=== PATIENT | female | born 1985 | race American Indian/Alaskan Native ===

== ENCOUNTER 2016-10-03 06:14 | Inpatient (IN) | payer MEDICAID ==
[2016-10-03] MEDS ORDERED: STADOL IV ONE (08:35)
[2016-10-03] MEDS ORDERED: LACTATED RINGERS 1,000 ML IV ONE (08:36)
[2016-10-03] MEDS ORDERED: ZOFRAN ONE (09:18)
[2016-10-03] MEDS ORDERED: ZOFRAN IV ONE (09:24)
[2016-10-03] MEDS ORDERED: SUBLIMAZE IV PRN (10:54)
[2016-10-03] MEDS ORDERED: BRETHINE SUB-Q PRN (10:54)
[2016-10-03] MEDS ORDERED: ePHEDrine SULFATE IV PRN ×2 (10:54→13:07)
[2016-10-03] MEDS ORDERED: STADOL IV PRN (10:54)
[2016-10-03] MEDS ORDERED: XYLOCAINE 2% INFILTRATI ONE (10:54)
[2016-10-03] MEDS ORDERED: MINERAL OIL PO PRN (10:54)
[2016-10-03] MEDS ORDERED: BRETHINE IVP PRN (10:54)
[2016-10-03] MEDS ORDERED: ZOFRAN IV PRN (10:54)
[2016-10-03] MEDS ORDERED: PITOCin/NS 30 UNIT/500ML 30 UNITS/500 ML BAG IV SCH (11:00)
[2016-10-03] MEDS ORDERED: PITOCin/NS 20 UNIT/1000ML DRIP 20 UNITS/1,000 ML BAG IV SCH (11:00)
[2016-10-03] MEDS ORDERED: LACTATED RINGERS 1,000 ML IV SCH (11:00)
[2016-10-03 11:24] LABS: Hematocrit 41.2 % (30.3-42.9); Hemoglobin 13.4 gm/dl (10.1-14.3); Mean Corpuscular HGB Conc 33 % (30-34); Mean Corpuscular Hemoglobin 31 pg (28-32); Mean Corpuscular Volume 94 fl (79-97); Platelet Count 200 K/mm3 (140-440); Red Blood Count 4.37 M/mm3 (3.65-5.03); Red Cell Distribution Width 14.8 % (13.2-15.2); White Blood Count 11.2 K/mm3 (4.5-11.0)
[2016-10-03] MEDS ORDERED: ePHEDrine SULFATE ONE (12:14)
[2016-10-03] MEDS: PITOCin/NS 30 UNIT/500ML 30 UNITS/500 ML BAG IV SCH ×4 (12:25→15:03)
[2016-10-03] MEDS ORDERED: NARCAN 2 MG/2 ML IV PRN (13:07)
--- NOTE | 2016-10-03 13:08 | Anesthesia Consultation ---
Anesthesia Consult and Med Hx Date of service: 10/03/16 - Airway Anesthetic Teeth Evaluation: Good ROM Head & Neck: Adequate Mental/Hyoid Distance: Adequate Mallampati Class: Class II Intubation Access Assessment: Probably Good - Pulmonary Exam CTA: Yes - Cardiac Exam Cardiac Exam: RRR - Pre-Operative Health Status ASA Pre-Surgery Classification: ASA2 Proposed Anesthetic Plan: Epidural, Spinal - Pulmonary Hx Asthma: No COPD: No Hx Pneumonia: No - Endocrine Hx End Stage Renal Disease: No - Hematic Hx Anemia: No - Other Systems Hx Obesity: Yes - Additional Comments Anesthesia Medical History Comments: +IUP
[2016-10-03] MEDS ORDERED: MARCAINE-EPI/PF 0.5%-1:200,000 INFILTRATI ONE (13:52)
[2016-10-03] MEDS ORDERED: fentaNYL-BUPIV 2 MCG/ML-0.125% 200 MCG/100 ML BAG EPIDURAL SCH (14:00)
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
--- NOTE | 2016-10-03 16:00 | Procedure Note ---
OB Delivery Note - Delivery Date of Delivery: 10/03/16 (1529) Surgeon: MELISSA CHANEY Estimated blood loss: 100cc - Vaginal Delivery presentation: vertex Delivery position: OA Intrapartum events: other(please specify) (terminal meconium) Delivery induction: none Delivery augmentation: pitocin Delivery monitor: external FHT, external uterine Route of delivery: Delivery placenta: spontaneous Delivery cord: 3 umbilical vessels Episiotomy: none Delivery laceration: none Anesthesia: epidural Delivery comments: Baby [place] was delivered on 10/03/2016 @1529 over intact perineum with terminal meconium and placed on maternal chest. Cord was clamped and cut by grandmother. Cord blood collected. Placenta delivered ann side presenting. Baby weighed 6lb 10 oz with apgars of 8/9. EBL 100. Mom and baby doing well. - A at 1 minute: 8 at 5 minutes: 9 Infant Gender: Female
[2016-10-03] MEDS ORDERED: MILK OF MAGNESIA PO PRN (16:02)
[2016-10-03] MEDS ORDERED: BENADRYL PO PRN (16:02)
[2016-10-03] MEDS ORDERED: TYLENOL PO PRN (16:02)
[2016-10-03] MEDS ORDERED: PHENERGAN PR PRN (16:02)
[2016-10-03] MEDS ORDERED: DERMOPLAST TP PRN (16:02)
[2016-10-03] MEDS ORDERED: DULCOLAX PR PRN (16:02)
[2016-10-03] MEDS ORDERED: NORCO 5/325 PO PRN (16:02)
[2016-10-03] MEDS ORDERED: TUCKS PAD TP PRN (16:02)
[2016-10-03] MEDS ORDERED: LANSINOH TP PRN (16:02)
[2016-10-03] MEDS ORDERED: MOTRIN PO SCH (17:00)
[2016-10-03] MEDS ORDERED: SODIUM CHLORIDE FLUSH SYRINGE 10 ML IV SCH (17:00)
[2016-10-03] MEDS ORDERED: METHERGINE IM ONE (18:32)
[2016-10-04] MEDS: NORCO 5/325 PO PRN ×2 (00:28→06:08)
[2016-10-04 04:26] LABS: Hematocrit 33.1 % (30.3-42.9); Hemoglobin 10.9 gm/dl (10.1-14.3)
[2016-10-04] MEDS ORDERED: BOOSTRIX IM ONE (06:00)
[2016-10-04] MEDS: MOTRIN PO PRN ×2 (06:09→13:52)
[2016-10-04] MEDS ORDERED: DEPO-PROVERA (CONTRACEPTION) IM ONE (10:11)
--- NOTE | 2016-10-04 10:11 | Progress Note ---
Assessment and Plan A: PP Day #1 Stable P: Follow Routine Orders Depo Provera prior to discharge D/C Home today per patient request RTO in 6 Weeks Subjective - Subjective Date of service: 10/04/16 Patient reports: appetite normal, voiding normally, pain well controlled, flatus , ambulating normally [place]: doing well Objective - Vital Signs Latest vital signs: Vital Signs Temp Pulse Pulse Pulse Resp BP BP 10/04/16 08:41 98.5 F 52 L 18 10/04/16 01:18 98.7 F 62 18 129/67 10/03/16 20:30 98.9 F 66 20 137/66 10/03/16 17:45 99.6 F 72 18 122/61 10/03/16 16:15 96 H 133/60 10/03/16 15:51 90 109/69 10/03/16 15:30 109/69 10/03/16 14:45 77 125/80 10/03/16 13:37 73 10/03/16 13:36 73 10/03/16 13:31 68 10/03/16 13:27 77 10/03/16 13:26 69 10/03/16 13:25 97.6 F 63 18 10/03/16 13:24 60 102/57 10/03/16 13:21 66 10/03/16 13:16 68 94/54 10/03/16 13:13 68 127/62 10/03/16 13:11 69 89/52 10/03/16 13:08 63 97/53 10/03/16 13:07 60 97/54 10/03/16 13:06 51 L 10/03/16 13:05 63 109/60 10/03/16 13:03 60 113/62 10/03/16 13:01 79 111/58 10/03/16 12:59 57 L 119/58 10/03/16 12:57 69 115/56 10/03/16 12:56 63 10/03/16 12:55 72 112/53 10/03/16 12:53 101 H 121/91 10/03/16 12:50 77 10/03/16 12:31 10/03/16 12:29 89 10/03/16 12:26 64 10/03/16 12:24 94 H 10/03/16 12:21 53 L 10/03/16 12:18 65 10/03/16 12:13 87 10/03/16 12:08 69 10/03/16 12:04 62 140/65 BP Pulse Ox 10/04/16 08:41 130/73 10/04/16 01:18 10/03/16 20:30 10/03/16 17:45 10/03/16 16:15 10/03/16 15:51 10/03/16 15:30 10/03/16 14:45 10/03/16 13:37 82 L 10/03/16 13:36 79 L 10/03/16 13:31 100 10/03/16 13:27 80 L 10/03/16 13:26 100 10/03/16 13:25 100 10/03/16 13:24 10/03/16 13:21 100 10/03/16 13:16 97 10/03/16 13:13 10/03/16 13:11 54 L 10/03/16 13:08 10/03/16 13:07 10/03/16 13:06 54 L 10/03/16 13:05 10/03/16 13:03 10/03/16 13:01 86 10/03/16 12:59 10/03/16 12:57 10/03/16 12:56 100 10/03/16 12:55 10/03/16 12:53 10/03/16 12:50 100 10/03/16 12:31 61 L 10/03/16 12:29 88 10/03/16 12:26 85 10/03/16 12:24 88 10/03/16 12:21 7 L 10/03/16 12:18 99 10/03/16 12:13 100 10/03/16 12:08 100 10/03/16 12:04 Intake and Output 10/03/16 10/04/16 10/04/16 22:59 06:59 14:59 Intake Total 360 720 Output Total 2100 800 Balance -1740 -80 Intake: Intake, Free Water 360 720 Output: Urine 2100 800 Indwelling Catheter 1200 Void 900 800 Other: Total, Output Amount 900 800 # Voids Void 1 2 Estimated Blood Loss 100 - Exam Breasts: Present: normal Cardiovascular: Present: Regular rate Lungs: Present: Clear to auscultation, Normal air movement Abdomen: Present: normal appearance, soft, normal bowel sounds Uterus: Present: normal, firm, fundal height below umbilicus Extremities: Present: normal - Labs Labs: Abnormal lab results 10/03/16 Range/Units 08:50 WBC 11.2 H (4.5-11.0) K/mm3
--- NOTE | 2016-10-04 10:13 | Discharge Summary ---
Providers - Providers Date of Admission: 10/03/16 11:22 Date of discharge: 10/04/16 Attending physician: BEBE VILLEGAS MD Primary care physician: BEBE VILLEGAS MD Hospitalization Reason for admission: active labor Delivery: Episiotomy: none Laceration: none Other procedures: none complications: none Discharge diagnosis: IUP at term delivered [place] baby: female Condition at discharge: Good Disposition: DISCHARGED TO HOME OR SELFCARE Plan - Provider Discharge Summary Activity: routine, no sex for 6 weeks, no heavy lifting 4 weeks, no strenuous exercise Diet: routine Instructions: routine Additional instructions: [] Smoking cessation referral if applicable(refer to patient education folder for contact #) [] Refer to [facility]'s [facility] Booklet Call your doctor immediately for: * Fever > 100.5 * Heavy vaginal bleeding ( >1 pad per hour) * Severe persistent headache * Shortness of breath * Reddened, hot, painful area to leg or breast * Drainage or odor from incision. * Keep incision clean and dry at all times and follow doctor's instructions regarding bathing/showering - Follow up plan Follow up: GABRIEL DOMINGUEZ CNM [Advanced Practice Nurse] - 6 Weeks
[2016-10-04] MEDS ORDERED: M-M-R II VACCINE SUB-Q ONE (10:35)
--- NOTE | 2016-10-04 11:03 | Progress Note ---
Subjective Date of service: 10/04/16 Interval history: 1st day after natural vaginal delivery Patient is in the bed, comfortable. Pain is well controlled with pain meds. Ambulated well, no residual neurological deficit. No anesthesia complications Objective - Constitutional Vitals: Vital Signs - 12hr 10/04/16 10/04/16 01:18 08:41 Temperature 98.7 F 98.5 F Pulse Rate [ 62 52 L From Monitor] Respiratory 18 18 Rate Blood Pressure 129/67 [Left Arm] Blood Pressure 130/73 [Right Arm] - Labs CBC & Chem 7: 10/04/16 04:03 Labs: Abnormal lab results 10/03/16 Range/Units 08:50 WBC 11.2 H (4.5-11.0) K/mm3
[2016-10-04 17:00] VITALS: BP 139/79
== END 2016-10-04 19:00 | disposition home or self-care (01) | DRG 775 ==
LOC: TRG 06:14 → LD 11:22 → OB 17:47
PROVIDERS: ADMIT Obstetrics & Gynecology; ATTEND Obstetrics & Gynecology
PROC: 3E0S3CZ (ICD-10-PCS; principal; 2016-10-03)
PROC: 00HU33Z Insertion of Infusion Device into Spinal Canal, Percutaneous Approach (ICD-10-PCS; principal; 2016-10-03)
PROC: 10E0XZZ Delivery of Products of Conception, External Approach (ICD-10-PCS; principal; 2016-10-03)
DX: O77.0 Labor and delivery complicated by meconium in amniotic fluid (principal); O99.214 Obesity complicating childbirth; Z3A.39 39 weeks gestation of pregnancy; Z37.0 Single live birth; Z90.49 Acquired absence of other specified parts of digestive tract; Z83.3 Family history of diabetes mellitus; Z82.49 Family history of ischemic heart disease and other diseases of the circulatory system; Z80.9 Family history of malignant neoplasm, unspecified; Z68.31 Body mass index [BMI] 31.0-31.9, adult
CPT/HCPCS: 36415; 85014; 85018; 85027; 86850; 86900; 86901; 90471; 90707; 90715; 99211; G0463; J0595; J1050; J2210; J2405; J2590; J3010; J7120

== ENCOUNTER 2018-05-31 06:07 | Day surgery (SDC) | payer MEDICAID ==
--- NOTE | 2018-05-30 13:54 | Short Stay Summary ---
Short Stay Documentation Date of service: 05/31/18 Narrative H&P: 32y/o with undesired fertility. The patient elects for permanent sterilization. She is aware there are other contraceptive options. Patient has been reassessed/reevaluated/re-examined. H&P has been reviewed. No interval changes. - History Principal diagnosis: Unwanted fertility Past Medical History: No medical history, other (cerebral palsy) Past Surgical History: appendectomy, cholecystectomy, Social history: , smoking - Allergies and Medications Current Medications: Allergies No Known Allergies Allergy (Verified 05/26/18 09:49) Home Medications Medication Instructions Recorded Confirmed Last Taken Type Ferrous Sulfate 325 mg PO DAILY 05/26/18 05/26/18 Unknown History - Physical exam General appearance: no acute distress Integumentary: no rash HEENT: Atraumatic Lungs: Clear to auscultation Breasts: deferred Heart: Regular rate Gastrointestinal: normal Female Genitourinary: deferred Rectal Exam: deferred Extremities: no ischemia - Brief post op/procedure progress note Date of procedure: 05/31/18 Pre-op diagnosis: undesired fertility Post-op diagnosis: same Procedure: Laparoscopic bilateral tubal ligation with Filshie clips Anesthesia: GETA Surgeon: RADHA OSBORNE Estimated blood loss: none Pathology: none Condition: stable - Hospital course Hospital course: The patient was admitted that he is surgery and underwent a laparoscopic bilateral tubal ligation. Please see operative note for details of surgery. Postoperative course was uneventful. - Disposition Condition at discharge: Good Disposition: DC-01 TO HOME OR SELFCARE Short Stay Discharge Plan Activity: other (pelvic rest for 1 week) Diet: regular Additional Instructions: Follow-up is not required Follow-up as needed Prescriptions: Ibuprofen [Motrin] 800 mg PO Q8HR PRN #60 tablet PRN Reason: Pain, Mild (1-3) oxyCODONE /ACETAMINOPHEN [Percocet 5/325] 1 tab PO Q6HR PRN #20 tablet PRN Reason: Pain
[2018-05-31] MEDS ORDERED: MARCAINE 0.5% INFILTRATI ONE ×2 (06:31→08:15)
[2018-05-31] MEDS ORDERED: DIPRIVAN 10 MG/ML IV ONE (07:12)
[2018-05-31] MEDS ORDERED: ZEMURON IV ONE (07:12)
[2018-05-31] MEDS ORDERED: XYLOCAINE MPF 2% ONE (07:12)
[2018-05-31] MEDS ORDERED: SUBLIMAZE ONE (07:12)
[2018-05-31] MEDS ORDERED: ZOFRAN ONE (07:13)
[2018-05-31] MEDS ORDERED: DECADRON ONE (07:13)
[2018-05-31] MEDS ORDERED: PEPCID IV ONE (07:23)
[2018-05-31] MEDS ORDERED: VERSED ONE ×2 (07:23→07:25)
[2018-05-31] MEDS ORDERED: LACTATED RINGERS 1,000 ML ONE (07:24)
[2018-05-31] MEDS ORDERED: ROBINUL ONE ×2 (08:14)
[2018-05-31] MEDS ORDERED: BLOXIVERZ ONE (08:14)
[2018-05-31] MEDS ORDERED: NACL 0.9% IR ONE (08:15)
--- NOTE | 2018-05-31 08:22 | Operative Report ---
Operative Report Operative Report: Date of surgery: 05/31/2018 Preoperative diagnosis: Unwanted fertility Postoperative diagnosis: Same as above Procedure: Laparoscopic bilateral tubal ligation with Filshie clips Surgeon: Zahra Nguyen M.D. Anesthesia: General endotracheal anesthesia Estimated blood loss: Minimal Findings: Normal uterus tubes and ovaries Indication: Are to-year-old 36 with unwanted fertility. The patient is elected for permanent sterilization. Procedure: The patient was taken to the operating room and given general endotracheal anesthesia without complication. The patient is prepped and draped in a normal sterile fashion. A bivalve speculum was placed in the patient's vagina and a single-tooth tenaculum was placed on the anterior lip of the cervix .A uterine acorn manipulato rwas placed, and the bivalve speculum was then removed. Attention was then turned to the patient's abdomen where a 5 mm infraumbilical skin incision was then made. A Veress needle was placed and peritoneal entry was verified water-filled syringe. Insufflation of the peritoneal cavity was performed with CO2 gas. A 5 mm trocar was placed and the laparoscope was then inserted. The patient was then placed in Trendelenburg. A 7 mm suprapubic skin incision was then made. Under direct visualization a 7 mm trocar was then placed. General survey of the patient's abdomen revealed normal uterus tubes and ovaries. The fallopian tube was then followed out to the fimbriated end. A Filshie clip was placed, on the ampullary portion of the tube. This was performed on the contralateral side as well. The 7 mm trocar was then removed. The pneumoperitoneum was then released. The 5 mm trocar laparoscope was then removed. The skin incisions were then closed with 4-0 Monocryl. The incisions were injected with quarter percent Marcaine. Dressings were applied to the incision. The vaginal instruments were then removed atraumatically. Then successfully extubated and taken to the recovery room. All sponge laps and needle counts were correct 2.
[2018-05-31] MEDS ORDERED: ZOFRAN IV PRN (08:43)
[2018-05-31] MEDS ORDERED: TORADOL IV PRN (08:43)
[2018-05-31] MEDS ORDERED: DEMEROL IV PRN (08:43)
[2018-05-31] MEDS ORDERED: DILAUDID IV PRN (08:43)
--- NOTE | 2018-05-31 08:44 | Anesthesia Day of Surgery ---
Anesthesia Day of Surgery - Day of Surgery Patient Examined: Yes Patient H&P Reviewed: Yes Patient is NPO: Yes
--- NOTE | 2018-05-31 08:45 | Anesthesia Consultation ---
Anesthesia Consult and Med Hx Date of service: 05/31/18 - Airway Anesthetic Teeth Evaluation: Poor ROM Head & Neck: Adequate Mental/Hyoid Distance: Adequate Mallampati Class: Class I Intubation Access Assessment: Good - Pulmonary Exam CTA: Yes - Cardiac Exam Cardiac Exam: RRR - Pre-Operative Health Status ASA Pre-Surgery Classification: ASA2 Proposed Anesthetic Plan: General (pt has C palsy) - Pulmonary Hx Smoking: Yes Hx Asthma: No COPD: No Hx Pneumonia: No - Cardiovascular System Hx Hypertension: No - Central Nervous System Hx Seizures: No Hx Psychiatric Problems: No - Endocrine Hx Renal Disease: No Hx End Stage Renal Disease: No Hx Hypothyroidism: No Hx Hyperthyroidism: No - Hematic Hx Anemia: No Hx Sickle Cell Disease: No - Other Systems Hx Alcohol Use: No Hx Cancer: No Hx Obesity: Yes
[2018-05-31] MEDS ORDERED: DEMEROL ONE (08:46)
[2018-05-31] MEDS ORDERED: LACTATED RINGERS 1,000 ML IV SCH (09:00)
[2018-05-31 10:36] VITALS: BP 146/87
--- NOTE | 2018-05-31 18:10 | Post Anesthesia Evaluation ---
- Post Anesthesia Evaluation Patient Participated: Yes Airway Patent: Yes Stable Respiratory Function: Yes Nausea/Vomiting: No Temp > 96.8F: Yes Pain Manageable: Yes Adequeate Hydration: Yes Anesthesia Complications: No
== END 2018-05-31 06:08 | disposition home or self-care (01) ==
LOC: OR 06:07
PROVIDERS: ATTEND Obstetrics & Gynecology
DX: Z30.2 Encounter for sterilization (principal); D64.9 Anemia, unspecified; G43.909 Migraine, unspecified, not intractable, without status migrainosus; F17.210 Nicotine dependence, cigarettes, uncomplicated; K21.9 Gastro-esophageal reflux disease without esophagitis; E66.9 Obesity, unspecified; Z68.35 Body mass index [BMI] 35.0-35.9, adult; Z98.891 History of uterine scar from previous surgery; Z79.899 Other long term (current) drug therapy; Z90.49 Acquired absence of other specified parts of digestive tract; Z98.890 Other specified postprocedural states; Z80.8 Family history of malignant neoplasm of other organs or systems; Z83.3 Family history of diabetes mellitus; Z82.49 Family history of ischemic heart disease and other diseases of the circulatory system
CPT/HCPCS: 58671; 81025; J1100; J1170; J2175; J2250; J2405; J2704; J2710; J3010; J7120